=== PATIENT | female | born 1955 | race Caucasian/White ===

== ENCOUNTER → 2016-09-14 | Outpatient (CLI) | payer OTHER ==
[~2016-09-14] MED LIST: IOPAMIDOL (ISOVUE 370) 100 ML BTL IV ONE
== END ==
LOC: CIMAGING 14:33
PROVIDERS: ATTEND Family Medicine
DX: I77.810 Thoracic aortic ectasia (principal); R91.1 Solitary pulmonary nodule
CPT/HCPCS: 71275-PO; Q9967

== ENCOUNTER 2016-09-16 19:57 | Emergency (ER) | payer OTHER ==
[2016-09-16 20:00] VITALS: TEMP 98.2
--- NOTE | 2016-09-16 20:09 | CPEKG ---
Heart Rate: 68 RR Interval: 882 P-R Interval: 172 QRSD Interval: 96 QT Interval: 392 QTC Interval: 417 P [place]: 40 QRS [place]: -15 T Wave [place]: 32 EKG Severity - OTHERWISE NORMAL ECG - EKG Impression: SINUS RHYTHM EKG Impression: BORDERLINE LEFT AXIS DEVIATION Electronically Signed By: Sam Spring 16-Sep-2016 20:53:17
--- NOTE | 2016-09-16 20:15 | EDPHY ---
H & P Smoking Status: Never smoked Time Seen by Provider: 09/16/16 20:08 HPI/ROS: Chief complaint. Chest pain HPI. 61-year-old female with known thoracic aortic aneurysm presents with sudden onset of back pain she describes as sharp and tearing and severe. Onset was about 1 hour ago. It is somewhat better now. She did have some anterior chest discomfort as well. She had some shortness of breath at the time. No nausea or fever or cough. She did have a CT of her aneurysm 2 days ago and that showed it was stable and showed mild dilation. No unusual leg pain or swelling. ROS Constitutional. no fever/chills, no weakness Eyes. no problems with vision ENT. no sore throat, no nasal drainage Cardiovascular. Chest pain Respiratory. Shortness of breath Abdominal. no abdominal pain, no nausea/vomiting, no diarrhea . no problems urinating MS. Mid back pain Skin. no rash Lymph. no swollen glands Neuro. no headache, no dizziness, no difficulty walking or with speech (Sam Spring) Past Medical/Surgical History: Aortic aneurysm (Sam Spring) Social History: , nonsmoker, no alcohol (Sam Spring) Physical Exam: General Appearance: Alert well-developed female moderate distress vital signs are stable Eyes: Pupils equal and round no pallor or injection. ENT, Mouth: Mucous membranes are moist. Respiratory: There are no retractions, lungs are clear to auscultation. Cardiovascular: Regular rate and rhythm. No murmur audible. Pulses present and symmetrical in both upper extremities Gastrointestinal: Abdomen is soft and nontender, no masses, bowel sounds normal. Neurological: Awake and alert, sensory and motor exams grossly normal. Skin: Warm and dry, no rashes. Musculoskeletal: Neck is supple nontender. Extremities symmetrical, full range of motion. Psychiatric: Patient is oriented X 3, there is no agitation. (Sam Spring) Constitutional: Initial Vital Signs Temperature (C) 36.8 C 09/16/16 19:58 Heart Rate 53 L 09/16/16 19:58 Respiratory Rate 18 09/16/16 19:58 Blood Pressure 135/80 H 09/16/16 19:58 O2 Sat (%) 93 09/16/16 19:58 O2 Delivery Mode Room Air Allergies/Adverse Reactions: levofloxacin [From Levaquin] Allergy (Verified 08/08/15 22:31) Home Medications: Medication Instructions Recorded Albuterol Hfa Anes Only [Proair 2 puffs IH QID PRN #1 mdi 08/02/15 Hfa Anes Only] LaMICtal 08/02/15 AZITHROMYCIN [Z-PACK] 250 mg PO DAILY #4 tab 08/08/15 Medical Decision Making - Diagnostics EKG Interpretation: EKG interpreted by me shows normal sinus rhythm with normal interval and left axis deviation. QRS is otherwise normal there is no significant ST elevation or depression. The rate is 68 (Sam Spring) Procedures: IV normal saline, monitor (Sam Spring) ED Course/Re-evaluation: 2100: I assumed care of this patient from Dr. Spring at shift change. ( Tru Johnson) Other Provider: This patient was signed out to me at 9pm pending CT-chest. This study was read as essentially negative by Dr. Min. I explained these results to the patient and offered her admission to the hospital tonight for further workup and monitoring given that the etiology of her pain remains unclear. She declines admission, however, and would like to go home. She understands risks of refusal. We discussed strict return precautions. (Tru Johnson) Care Turn Over: care to Dr. Johnson at 2100. (Sam Spring) - Data Points Laboratory Results: Laboratory Results 09/16/16 20:37 09/16/16 20:37 09/16/16 09/16/16 09/16/16 20:39 20:37 20:37 WBC RBC Hgb POC Hgb 15.6 gm/dL gm/dL (12.3-15.9) Hct POC Hct 46 % % (35.5-47.5) MCV MCH MCHC RDW Plt Count MPV Neut % (Auto) Lymph % (Auto) [place] % (Auto) Eos % (Auto) Baso % (Auto) Nucleat RBC Rel Count Absolute Neuts (auto) Absolute Lymphs (auto) Absolute Monos (auto) Absolute Eos (auto) Absolute Basos (auto) Absolute Nucleated RBC Immature Gran % Immature Gran # D-Dimer < 0.27 ug/mLFEU ug/mLFEU (0.00-0.50) POC Sodium 145 mEq/L H mEq/L (134-144) Sodium 142 mEq/L mEq/L (134-144) POC Potassium 3.6 mEq/L mEq/L (3.3-5.0) Potassium 3.8 mEq/L mEq/L (3.5-5.2) POC Chloride 106 mEq/L mEq/L (96-108) Chloride 108 mEq/L mEq/L (97-110) Carbon Dioxide 27 mEq/l mEq/l (22-31) Anion Gap 7 mEq/L L mEq/L (8-16) POC BUN 21 mg/dL mg/dL (7-23) BUN 21 mg/dL mg/dL (7-23) Creatinine 0.9 mg/dL mg/dL (0.6-1.0) POC Creatinine 0.9 mg/dL mg/dL (0.6-1.2) Estimated GFR > 60 Glucose 87 mg/dL mg/dL (70-100) POC Glucose 93 mg/dL mg/dL (70-100) Calcium 9.9 mg/dL mg/dL (8.5-10.4) Troponin I < 0.012 ng/mL ng/mL (0-0.034) 09/16/16 20:37 WBC 6.69 10^3/uL 10^3/uL (3.80-9.50) RBC 4.89 10^6/uL 10^6/uL (4.18-5.33) Hgb 15.2 g/dL g/dL (12.6-16.3) POC Hgb Hct 44.9 % % (38.0-47.0) POC Hct MCV 91.8 fL fL (81.5-99.8) MCH 31.1 pg pg (27.9-34.1) MCHC 33.9 g/dL g/dL (32.4-36.7) RDW 13.2 % % (11.5-15.2) Plt Count 228 10^3/uL 10^3/uL (150-400) MPV 10.7 fL fL (8.7-11.7) Neut % (Auto) 52.1 % % (39.3-74.2) Lymph % (Auto) 35.0 % % (15.0-45.0) Fleming % (Auto) 4.8 % % (4.5-13.0) Eos % (Auto) 6.7 % % (0.6-7.6) Baso % (Auto) 1.0 % % (0.3-1.7) Nucleat RBC Rel Count 0.0 % % (0.0-0.2) Absolute Neuts (auto) 3.48 10^3/uL 10^3/uL (1.70-6.50) Absolute Lymphs (auto) 2.34 10^3/uL 10^3/uL (1.00-3.00) Absolute Monos (auto) 0.32 10^3/uL 10^3/uL (0.30-0.80) Absolute Eos (auto) 0.45 10^3/uL H 10^3/uL (0.03-0.40) Absolute Basos (auto) 0.07 10^3/uL 10^3/uL (0.02-0.10) Absolute Nucleated RBC 0.00 10^3/uL 10^3/uL (0-0.01) Immature Gran % 0.4 % % (0.0-1.1) Immature Gran # 0.03 10^3/uL 10^3/uL (0.00-0.10) D-Dimer POC Sodium Sodium POC Potassium Potassium POC Chloride Chloride Carbon Dioxide Anion Gap POC BUN BUN Creatinine POC Creatinine Estimated GFR Glucose POC Glucose Calcium Troponin I Point of Care Test Results: 09/16/16 20:39 POC Sodium 145 H POC Potassium 3.6 POC Chloride 106 POC BUN 21 POC Creatinine 0.9 POC Glucose 93 Departure - Departure Disposition: Home, Routine, Self-Care Clinical Impression: Back pain Condition: Good Instructions: Back Pain (ED) Additional Instructions: Follow-up with a orthopedic shoe maker tomorrow in order to be evaluated as soon as possible. Return to the ED immediately for recurrence of pain, new symptoms or other worsening of condition. Referrals: Tru Casarez DO [Primary Care Provider] - As per Instructions Christos Proctor MD [Medical Doctor] - As per Instructions
[2016-09-16 20:49] LABS: % IMMATURE GRANULYOCYTES 0.4 % (0.0-1.1); ABSOLUTE IMMATURE GRANULOCYTES 0.03 10^3/uL (0.00-0.10); ADD DIFF? NO; ADD MORPH? NO; ADD SCAN? NO; ATYPICAL LYMPHOCYTE FLAG 10 (0-99); FRAGMENT RBC FLAG 0 (0-99); HEMATOCRIT 44.9 % (38.0-47.0); HEMOGLOBIN 15.2 g/dL (12.6-16.3); LEFT SHIFT FLG 0 (0-99); LIPEMIA HEMOLYSIS FLAG 90 (0-99); MEAN CELL HEMOGLOBIN 31.1 pg (27.9-34.1); MEAN CELL HEMOGLOBIN CONCENTR. 33.9 g/dL (32.4-36.7); MEAN CELL VOLUME 91.8 fL (81.5-99.8); MEAN PLATELET VOLUME 10.7 fL (8.7-11.7); PLATELET CLUMPS FLAG 0 (0-99); PLATELET COUNT 228 10^3/uL (150-400); RED BLOOD CELL COUNT 4.89 10^6/uL (4.18-5.33); RED CELL DISTRIBUTION WIDTH 13.2 % (11.5-15.2)
[2016-09-16] MEDS ORDERED: IOPAMIDOL (ISOVUE 370) 100 ML BTL IV ONE (20:53)
[2016-09-16 21:05] LABS: ANION GAP 7 mEq/L (8-16); CALCIUM 9.9 mg/dL (8.5-10.4); CARBON DIOXIDE 27 mEq/l (22-31); CHLORIDE 108 mEq/L (97-110); CREATININE 0.9 mg/dL (0.6-1.0); GLOMERULAR FILTRATION RATE > 60; GLUCOSE 87 mg/dL (70-100); POTASSIUM 3.8 mEq/L (3.5-5.2); SODIUM 142 mEq/L (134-144)
[2016-09-16 21:17] LABS: TROPONIN I < 0.012 ng/mL (0-0.034)
[2016-09-16 22:15] VITALS: BP 107/66; PULSE 67; RESP 16; O2SAT 97
== END 2016-09-16 22:15 | disposition home or self-care (01) ==
DX: M54.6 Pain in thoracic spine (principal)
CPT/HCPCS: 82947-QW; Q9967

== ENCOUNTER → 2017-06-12 | Outpatient (CLI) | payer OTHER | LOC: FIMAGING 08:40 | PROVIDERS: ATTEND Family Medicine | DX: Z12.31 Encounter for screening mammogram for malignant neoplasm of breast (principal); Z80.3 Family history of malignant neoplasm of breast | CPT/HCPCS: G0202 ==

== ENCOUNTER → 2018-06-19 | Outpatient (CLI) | payer OTHER | LOC: FIMAGING 14:26 | PROVIDERS: ATTEND Family Medicine | DX: Z12.31 Encounter for screening mammogram for malignant neoplasm of breast (principal) ==